=== PATIENT | female | born 1945 | race Caucasian/White ===

== ENCOUNTER 2024-08-31 10:01 | Emergency (ER) | payer MEDICARE, BC, SELFPAY ==
[2024-08-31 10:08] VITALS: BP 162/86
--- NOTE | 2024-08-31 11:01 | ED.GENMED ---
History of Present Illness
General
Chief Complaint: Abdominal Pain
Time Seen by Provider: 08/31/24 11:01
History of Present Illness
History of Present Illness:
TIME OF INITIAL ENCOUNTER: 11 AM
HPI: Over the past few days, the patient has been having some suprapubic discomfort. She has had no fevers. She also had decrease in urination however she is also concerned about the possibility of a urinary tract infection. She is visiting from
[place]. She was also concerned about the possibility of recurrence of diverticulitis as she has had this several times in the past
EXAM:
GENERAL: Well appearing in no distress
HEENT: Moist oral mucosa
CARDIOVASCULAR: No murmurs, normal heart rate, regular rhythm, No chest wall tenderness
PULMONARY: No respiratory distress, breath sounds are clear and equal
ABDOMEN: Soft with no peritoneal signs, minimal lower abdominal tenderness mostly in the suprapubic region
NEUROLOGIC: Excellent strength all extremities, no coordination deficits
PSYCHIATRIC: Appropriate mental status, normal insight and judgement
EXTREMITIES: Nontender, no edema, moves all extremities equally
SKIN: No rash, no lesions
NUMBER AND COMPLEXITY OF PROBLEMS ADDRESSED AT THE ENCOUNTER
� Chronic conditions affecting care: High blood pressure, diverticular disease, anxiety
� Acute Exacerbation and/or Progression of Chronic Illness: This is an acute problem diverticulitis, UTI,
� Differential Diagnosis includes: UTI, diverticulitis, abscess/perforation, doubt bowel obstruction, mesenteric adenitis
AMOUNT AND/OR COMPLEXITY OF DATA TO BE REVIEWED AND ANALYZED
� I performed an independent evaluation of and my interpretation is:
EKG:
CT: CT with IV contrast suggest some degree of acute diverticulitis
X-rays:
Laboratory Studies: Urinalysis shows no evidence of infection, white count 9.6, chemistries relatively unremarkable
Other:
� Review of other/old records: No old records available for review
� Clinical information was obtained by an independent historian: I spoke to at bedside
� Prescriptions/Medications Considered but not given:
� Further testing considered but not performed:
RISK OF COMPLICATIONS AND/OR MORBIDITY OR MORTALITY OF PATIENT MANAGEMENT
� Social determinants of health affecting care: Visiting from [place], does not live here
� Discussion with other providers:
� Escalation of care including admission/observation vs risk of discharge considered: CT imaging shows diverticulitis. Will start antibiotics. Very minimal tenderness on examination. Recommend outpatient management.
ANY OTHER UPDATES:
1:30 PM: I reassessed patient. The patient is very well-appearing. Encouraged to return here if worse.
Phy Exam
Physical Exam
Physical Exam:
See HPI
Course
Orders/Labs/Results
Orders:
Orders
08/31/24 11:07
Complete Blood Count/With Diff Urgent
Comprehensive Metabolic Panel Urgent
Lipase Urgent
Urinalysis Reflex To Culture Urgent
Date Specimen was Collected: 08/31/24
Time Specimen was Collected: 11:04
08/31/24 11:09
CT Abd/pelvis W Iv Cont Urgent
Comment:
Reason For Exam: lower abd pain/tender
08/31/24 13:27
Amoxicillin 875 mg/Clav 125 mg [Augmentin 875 mg/125 mg] 1 tablet PO NOW STA
Abnormal Lab Results
08/31/24
11:07
RBC 4.13 L 10^6/uL
(4.20-5.40)
MCHC 32.2 L g/dL
(33.0-37.0)
MPV 10.7 H fL
(7.4-10.4)
Abs Immat Gran (auto) 0.1 H 10^3/uL
(0-0.05)
Absolute Neuts (auto) 8.1 H 10^3/uL
(1.4-6.5)
Absolute Lymphs (auto) 0.7 L 10^3/uL
(1.2-3.4)
Immature Gran % 1.3 H %
(0-0.5)
Neutrophils % 84.1 H %
(42.2-75.2)
Lymphocytes % 7.5 L %
(20.5-51.1)
Carbon Dioxide 32 H mmol/L
(22-30)
Glucose 100 H mg/dl
(70-99)
08/31/24 11:07
08/31/24 11:07
Vital Signs
Initial and Last Documented VS:
Initial Vital Signs
Temp Pulse Resp BP Pulse Ox
37.1 C 94 16 162/86 96
08/31/24 10:08 08/31/24 10:08 08/31/24 10:08 08/31/24 10:08 08/31/24 10:08
Last Documented Vital Signs
Temp Pulse Resp BP Pulse Ox
37.1 C 94 16 144/74 96
08/31/24 10:08 08/31/24 10:08 08/31/24 10:08 08/31/24 11:11 08/31/24 10:08
*Critical Care Note
Total Time (30-74mins, 75-104mins- exclusive of procedures): Not Applicable
ED Attending Note
-
Portions of this chart may have been created with voice recognition software.� Occasional wrong word or��sound alike� substitutions may have occurred due to the inherent limitations of voice recognition software.
Discharge Plan
Departure
Patient Disposition: Home (Routine Discharge)
Date of Disposition: 08/31/24
Time of Disposition: 13:32
Patient with high blood pressure during this ER visit?: Yes
Discharge Problem:
Diverticulitis
Instructions: Diverticulitis (DC), BLOOD PRESSURE
Prescriptions:
New
amoxicillin-pot clavulanate 875-125 mg tablet
1 tab PO BID Qty: 14 0RF
Referrals:
NONE,* [Family Provider] -
Activity Restrictions/Additional Instructions:
CAT scan shows diverticulitis but no sign of complication. Your white blood cell count is normal. Other basic blood work is unremarkable. Urinalysis shows no evidence of infection. Next dose of antibiotic this evening. Return here if worse or
other concerns and follow-up with your doctors in [place] when you get back.
Interventions
Interventions:
*Risk Screen - Suicide Last Done: 08/31/24 11:06
*General Assessment Last Done: 08/31/24 11:06
*Neglect/Abuse Screening Last Done: 08/31/24 11:06
*ED COVID-19 Vaccine History Last Done: 08/31/24 11:06
AK-Wcjgzt-Dztamnnlod Assessment Last Done: 08/31/24 11:06
Discharge Date and Time
Print Language: BAHAMIAN
[2024-08-31 11:11] VITALS: BP 144/74
[2024-08-31 11:19] LABS: % Basophils 0.4 % (0-2); % Eosinophils 0.4 % (0-6); % Immature Granulocytes 1.3 % (0-0.5); % Lymphocytes 7.5 % (20.5-51.1); % Monocytes 6.3 % (1.7-9.3); % Neutrophils 84.1 % (42.2-75.2); Absolute Immature Granulocytes 0.1 10^3/uL (0-0.05); Absolute Lymphocytes 0.7 10^3/uL (1.2-3.4); Absolute Monocytes 0.6 10^3/uL (0.1-0.6); Absolute Neutrophils 8.1 10^3/uL (1.4-6.5); Hematocrit 39.4 % (37.0-47.0); Hemoglobin 12.7 g/dL (12.0-16.0); Mean Corp Hgb Conc. 32.2 g/dL (33.0-37.0); Mean Corpuscular Hgb 30.8 pg (27.0-31.0); Mean Corpuscular Volume 95.4 fL (81.0-99.0); Mean Platelet Volume 10.7 fL (7.4-10.4); Nucleated Red Blood Cells % 0 %; Platelet Count 208 10^3/uL (130-400); Red Blood Cell Count 4.13 10^6/uL (4.20-5.40); White Blood Cell Count 9.6 10^3/uL (4.8-10.8)
[2024-08-31 11:33] LABS: Urine Albumin Negative (Neg - Trace); Urine Bilirubin Negative (Negative); Urine Character Clear (Clear); Urine Color Yellow; Urine Glucose Negative (Negative); Urine Ketone Negative (Negative); Urine Leukocyte Negative (Negative); Urine Nitrite Negative (Negative); Urine Occult Blood Negative (Negative); Urine Urobilinogen Negative (Neg - 1+)
[2024-08-31 11:36] LABS: ALT (SGPT) 24 U/L (0-35); AST (SGOT) 27 U/L (14-36); Albumin 4.1 g/dl (3.5-5.0); Alkaline Phosphatase 69 U/L (38-126); Blood Urea Nitrogen 14 mg/dl (7-17); Calcium 9.3 mg/dl (8.4-10.2); Carbon Dioxide 32 mmol/L (22-30); Chloride 103 mmol/L (98-107); Glucose 100 mg/dl (70-99); Lipase 112 U/L (23-300); Potassium 4.2 mmol/L (3.5-5.1); Sodium 142 mmol/L (135-145); Total Bilirubin 0.7 mg/dl (0.2-1.3); Total Protein 6.6 g/dl (6.3-8.2); eGFR > 60.00
[2024-08-31] MEDS: AUGMENTIN 875 MG/125 MG 1 TABLET PO (13:30)
== END 2024-08-31 13:43 | disposition home or self-care (01) ==
LOC: EMR 10:01
PROVIDERS: EMERGENCY PHYSICIAN Emergency Medicine
DX: K57.32 Diverticulitis of large intestine without perforation or abscess without bleeding (principal)
CPT/HCPCS: 99284; 74177; 80053; 81003; 83690; 85025; Q9967